=== PATIENT | male | born 1935 | race Caucasian/White ===

== ENCOUNTER → 2018-06-17 | Outpatient (CLI) | payer MEDICARE | END | disposition home or self-care (01) | LOC: SHCH 07:50 | PROVIDERS: ATTEND Internal Medicine Cardiovascular Disease | DX: I35.8 Other nonrheumatic aortic valve disorders (principal); I35.0 Nonrheumatic aortic (valve) stenosis | CPT/HCPCS: 93306 ==

== ENCOUNTER 2018-09-02 06:24 | Day surgery (SDC) | payer MEDICARE ==
[2018-08-31 09:59] LABS: BASOPHILS % (AUTO) 0.8 % (0.0-5.0); EOSINOPHILS % (AUTO) 2.4 % (0.0-8.0); HEMATOCRIT 37.7 % (42-54); LYMPHOCYTES % (AUTO) 38.9 % (21.0-51.0); MEAN CORPUSCULAR HEMOGLOBIN 30.2 pg (27.0-33.0); MEAN CORPUSCULAR HGB CONC 33.4 g/dL (32.0-36.0); MEAN CORPUSCULAR VOLUME 90.3 fL (79-99); MONOCYTES % (AUTO) 8.4 % (3.0-13.0); NEUTROPHILS % (AUTO) 49.5 % (40.0-77.0); PLATELET COUNT (AUTO) 247 K/uL (130-400); RED BLOOD CELL COUNT(AUTO) 4.18 MIL/uL (4.50-6.20); RED CELL DISTRIBUTION WIDTH 13.4 % (11.0-15.5); WHITE BLOOD COUNT (AUTO) 6.5 K/uL (4.8-10.8)
[2018-08-31 10:10] LABS: CREATININE 1.3 mg/dL (0.5-1.5); POTASSIUM 4.1 mmol/L (3.5-5.1)
[2018-08-31 10:11] VITALS: BP 155/70
[2018-08-31 10:15] LABS: INR 0.99 (0.85-1.15); PARTIAL THROMBOPLASTIN TIME 30.8 SEC (26.3-35.5); PROTHROMBIN TIME 10.4 SEC (9.6-11.6)
[2018-09-02] VITALS (9 sets, daily range): BP systolic 94–134; BP diastolic 50–69
[~2018-09-02] VITALS: Ht 185.4 cm; Wt 85.6 kg
[~2018-09-02 06:24] MED LIST: ALBU8.5H8 IH; APIX5TAB PO; DILT180C51 PO; FISH1CAP50 PO; METO25TA6 PO; UBID30CA8 PO
[2018-09-02] MEDS ORDERED: SODIUM CHLORIDE 0.9% 1000ML 1,000 ML IV SCH (08:00)
[2018-09-02] MEDS ORDERED: LIDOCAINE HCL 2% 20ML ONE (08:16)
[2018-09-02] MEDS ORDERED: MEPERIDINE-PF 25 MG/ML SYG ONE ×3 (08:26→09:30)
[2018-09-02] MEDS ORDERED: MIDAZOLAM HCL 1 MG/ML 2ML VIAL ONE ×2 (08:26→08:45)
[2018-09-02] MEDS ORDERED: HEPARIN SODIUM 1000UNIT/ML 10ML VIAL ONE (08:33)
[2018-09-02] MEDS ORDERED: METO25TA6 PO (10:52)
--- NOTE | 2018-09-02 13:45 | NUR ---
PT DISCHARGED HOME, TOLERATING FLUIDS/FOOD WELL, AMBULATING WELL, VOIDED PRIOR TO DISCHARGE. PT DENIES ANY SEVERE PAIN, NAUSEA OR DIZZINESS. PT INSTRUCTED IN DR. GUIDO'S INSTRUCTIONS TO RESUME ELIQUIS TONIGHT AND TO TAKE 1/2 TABLET OF METOPROLOL TWICE RUPINDER (INSTEAD OF WHOLE TABLET) STARTING THIS EVENING AND TO STOP IT ON THURSDAY IF HE FEELS WELL. PT INSTRUCTED IN ROUTINE AND EMERGENCY CARE OF GROIN SITE. PT AND SPOUSE REPORT NO FURTHER QUESTIONS AT THIS TIME.
[2018-09-03] MEDS ORDERED: METH4TAB3 PO (16:51)
[2018-09-03] MEDS ORDERED: AZIT250T PO (16:51)
== END 2018-09-02 13:45 | disposition home or self-care (01) ==
LOC: DAH 06:24
PROVIDERS: ATTEND Internal Medicine Cardiovascular Disease
DX: I48.3 Typical atrial flutter (principal); Z79.01 Long term (current) use of anticoagulants; Z79.899 Other long term (current) drug therapy; I10 Essential (primary) hypertension; J44.9 Chronic obstructive pulmonary disease, unspecified; N40.0 Benign prostatic hyperplasia without lower urinary tract symptoms; K29.70 Gastritis, unspecified, without bleeding; Z88.8 Allergy status to other drugs, medicaments and biological substances
CPT/HCPCS: 36415; 80048; 85025; 85610; 85730; 93613; 93621; 93653; A4606; A4649; C1730 ×2; C1732; C1894 ×2; J1644 ×2; J2175 ×3; J2250 ×2; J3490; J7030; 99156; 99157

== ENCOUNTER 2018-09-03 05:13 | Observation (INO) | payer MEDICARE ==
[~2018-09-03] VITALS: Ht 185.4 cm; Wt 84.4 kg
[2018-09-03] MEDS ORDERED: ACETAMINOPHEN EXTRA STRENGTH 500 MG TABLET ONE (05:32)
[2018-09-03] MEDS ORDERED: IPRATROPIUM/ALBUTEROL SULFATE 3 ML SOLUTION IH ONE (05:43)
[2018-09-03 05:47] LABS: BASOPHILS % (AUTO) 0.7 % (0.0-5.0); EOSINOPHILS % (AUTO) 2.5 % (0.0-8.0); HEMATOCRIT 35.9 % (42-54); LYMPHOCYTES % (AUTO) 15.5 % (21.0-51.0); MEAN CORPUSCULAR HEMOGLOBIN 30.1 pg (27.0-33.0); MEAN CORPUSCULAR HGB CONC 33.5 g/dL (32.0-36.0); MEAN CORPUSCULAR VOLUME 89.8 fL (79-99); MONOCYTES % (AUTO) 11.7 % (3.0-13.0); NEUTROPHILS % (AUTO) 69.6 % (40.0-77.0); PLATELET COUNT (AUTO) 248 K/uL (130-400); RED CELL DISTRIBUTION WIDTH 13.5 % (11.0-15.5); WHITE BLOOD COUNT (AUTO) 10.5 K/uL (4.8-10.8)
[2018-09-03 05:51] LABS: CREATININE 1.3 mg/dL (0.5-1.5); POTASSIUM 4.2 mmol/L (3.5-5.1)
[2018-09-03 05:54] LABS: INR 1.01 (0.85-1.15); PARTIAL THROMBOPLASTIN TIME 33.4 SEC (26.3-35.5); PROTHROMBIN TIME 10.6 SEC (9.6-11.6)
[2018-09-03 05:55] LABS: ALBUMIN 3.3 g/dL (3.5-5.0); BILIRUBIN,TOTAL 1.1 mg/dL (0.2-1.0); TOTAL PROTEIN, SERUM 6.7 g/dL (6.0-8.3)
[2018-09-03 05:57] LABS: APPEARANCE,URINE Clear (CLEAR); BILIRUBIN,URINE Negative (NEGATIVE); COLOR,URINE Yellow (YELLOW); GLUCOSE, URINE (UA) Negative (NEGATIVE); KETONES,URINE Negative (NEGATIVE); LEUKOCYTE ESTERASE ,URINE Negative (NEGATIVE); NITRATE,URINE Negative (NEGATIVE); OCCULT BLOOD,URINE Negative (NEGATIVE); PH,URINE 5.5 (5.0-8.0); PROTEIN,URINE Negative (NEGATIVE)
[2018-09-03 06:09] LABS: B-TYPE NATRIURETIC PEPTIDE 46 pg/mL (0-100)
[2018-09-03] MEDS: METHYLPREDNISOLONE SOD SUCC 125MG/2ML VIAL IV SCH ×2 (06:30→14:39)
[2018-09-03] MEDS ORDERED: LACTULOSE 20 GM/30 ML UDCUP PO PRN (06:30)
[2018-09-03] MEDS ORDERED: LACTATED RINGERS 1000ML 1,000 ML IV SCH (06:30)
[2018-09-03] MEDS ORDERED: ACETAMINOPHEN 325 MG TAB PO PRN (06:30)
[2018-09-03] MEDS ORDERED: AZITHROMYCIN 500MG+NS 250ML 250 ML IV SCH (06:30)
[2018-09-03] MEDS ORDERED: MORPHINE SULFATE 2 MG/ML 1ML SYG IV PRN (06:30)
[2018-09-03] MEDS ORDERED: ONDANSETRON HCL 4 MG/2 ML VIAL IV PRN (06:30)
[2018-09-03] MEDS ORDERED: ASPIRIN 325 MG TABLET ONE (06:44)
[2018-09-03] MEDS ORDERED: LACTATED RINGERS 1000ML 1,000 ML IV ONE (06:44)
[2018-09-03] MEDS ORDERED: METHYLPREDNISOLONE SOD SUCC 125MG/2ML VIAL ONE (06:45)
[2018-09-03] MEDS ORDERED: AZITHROMYCIN 500MG+NS 250ML 250 ML IV ONE (06:45)
[2018-09-03] MEDS ORDERED: ALBUTEROL SULFATE 0.083% 2.5 MG/3 ML INH IH ONE (07:07)
[2018-09-03] MEDS ORDERED: PANTOPRAZOLE SODIUM 40 MG TABLET.DR PO SCH (07:30)
[2018-09-03] MEDS ORDERED: ENOXAPARIN SODIUM 40 MG/0.4 ML SYRINGE SQ ONE (08:00)
[2018-09-03] MEDS ORDERED: PANTOPRAZOLE SODIUM 40 MG TABLET.DR PO ONE (08:00)
[2018-09-03] MEDS ORDERED: ENOXAPARIN SODIUM 40 MG/0.4 ML SYRINGE SQ SCH (09:00)
[2018-09-03] MEDS ORDERED: METOPROLOL TARTRATE 25 MG TAB PO SCH (09:00)
[2018-09-03] MEDS ORDERED: UBIDECARENONE 30 MG PO SCH (09:00)
[2018-09-03] MEDS ORDERED: DILTIAZEM HCL 180 MG CAP.SR.24H PO SCH (09:00)
[2018-09-03] MEDS ORDERED: DILTIAZEM HCL 60 MG TABLET ONE (11:35)
[2018-09-03] MEDS ORDERED: DILTIAZEM HCL 120 MG CAP.SR.24H PO ONE (11:35)
[2018-09-03] MEDS ORDERED: METOPROLOL TARTRATE 25 MG TAB ONE (11:36)
[2018-09-03 11:37] LABS: TROPONIN I 0.48 ng/mL (0.00-0.06)
[2018-09-03] MEDS ORDERED: APIXABAN 2.5 MG TABLET PO ONE (11:38)
[2018-09-03] MEDS: IPRATROPIUM/ALBUTEROL SULFATE 3 ML SOLUTION IH SCH ×2 (12:00→13:31)
[2018-09-03 12:15] VITALS: BP 120/71
[2018-09-03 16:00] VITALS: BP 144/74
[2018-09-03] MEDS ORDERED: METH4TAB3 PO (16:51)
[2018-09-03] MEDS ORDERED: AZIT250T PO (16:51)
--- NOTE | 2018-09-03 18:16 | NUR ---
PATIENT DISCHARGE PATIENT DISCHARGED, IV DISCONTINUED, BLEEDING CONTROLLED, CATHLON INTACT, PATIENT TOLERATED WITHOUT INCIDENT.
[2018-09-03] MEDS ORDERED: APIXABAN 5 MG TABLET PO SCH (21:00)
[2018-09-04] MEDS ORDERED: FISH OIL 1000 MG/CAP PO SCH (09:00)
== END 2018-09-03 18:45 | disposition home or self-care (01) ==
LOC: EDH 05:13 → EDHIP 06:30 → 3AH 12:06
PROVIDERS: ADMIT Internal Medicine; ATTEND Internal Medicine
DX: J44.1 Chronic obstructive pulmonary disease with (acute) exacerbation (principal); J44.0 Chronic obstructive pulmonary disease with (acute) lower respiratory infection; J20.9 Acute bronchitis, unspecified; I50.32 Chronic diastolic (congestive) heart failure; I48.92 Unspecified atrial flutter; Z79.01 Long term (current) use of anticoagulants; Z87.891 Personal history of nicotine dependence; Z79.899 Other long term (current) drug therapy
CPT/HCPCS: 36415; 71045; 80053; 81003; 82550 ×2; 83605; 83874; 83880; 84484 ×2; 85025; 85610; 85730; 87040 ×2; 87088; 87486; 87581; 87633; 87798; 87804 ×2; 93005; 94640 ×3; 94664; 96374; 99291; G0378 ×12; J0456; J1650; J2930 ×2; J7120

== ENCOUNTER 2019-08-09 05:32 | Day surgery (SDC) | payer MEDICARE ==
[~2019-08-09] VITALS: Ht 190.5 cm; Wt 88.9 kg
[~2019-08-09 05:32] MED LIST changes: -DILT180C51 PO; -FISH1CAP50 PO; +L.AC1CAP6 PO; +LOSA25TA41 PO; +METO-391 PO; -METO25TA6 PO; +MULT1CAP32 PO; +OMEP40CA13 PO; +TAMS-1 PO; -UBID30CA8 PO
[2019-08-09] MEDS ORDERED: SODIUM CHLORIDE 0.9% 1000ML 1,000 ML IV ONE (06:19)
[2019-08-09 06:39] VITALS: BP 154/72
[2019-08-09] MEDS ORDERED: LIDOCAINE HCL 1% 20 ML VIAL ONE (06:58)
[2019-08-09 07:11] VITALS: BP 94/34
[2019-08-09 07:35] VITALS: BP 129/56
== END 2019-08-09 07:35 | disposition home or self-care (01) ==
LOC: ENDO 05:32 → DAH 05:32 → ENDO 07:35
PROVIDERS: ATTEND Internal Medicine Gastroenterology
DX: R12 Heartburn (principal); K22.8 Other specified diseases of esophagus; K31.89 Other diseases of stomach and duodenum; K44.9 Diaphragmatic hernia without obstruction or gangrene; I45.10 Unspecified right bundle-branch block; J44.9 Chronic obstructive pulmonary disease, unspecified; K21.9 Gastro-esophageal reflux disease without esophagitis; I10 Essential (primary) hypertension; Z79.899 Other long term (current) drug therapy
CPT/HCPCS: 43239; 93005; A4215; A4221; A4222; A4223; A4606; A4620; A4663; J7030

== ENCOUNTER 2021-04-03 16:53 | Inpatient (IN) | payer MEDICARE ==
[~2021-04-03] VITALS: Ht 180.3 cm; Wt 77.1 kg
[~2021-04-03 16:53] MED LIST changes: -APIX5TAB PO; -L.AC1CAP6 PO; -METO-391 PO; -OMEP40CA13 PO; +OMEP40CA21 PO
[2021-04-03 17:29] LABS: BASOPHILS % (AUTO) 0.6 % (0.0-5.0); EOSINOPHILS % (AUTO) 3.4 % (0.0-8.0); HEMATOCRIT 36.2 % (42-54); LYMPHOCYTES % (AUTO) 13.6 % (21.0-51.0); MEAN CORPUSCULAR HEMOGLOBIN 28.7 pg (27.0-33.0); MEAN CORPUSCULAR HGB CONC 32.3 g/dL (32.0-36.0); MEAN CORPUSCULAR VOLUME 88.9 fL (79-99); MONOCYTES % (AUTO) 9.1 % (3.0-13.0); PLATELET COUNT (AUTO) 295 K/uL (130-400); RED BLOOD CELL COUNT(AUTO) 4.07 MIL/uL (4.50-6.20); RED CELL DISTRIBUTION WIDTH 12.2 % (11.0-15.5); WHITE BLOOD COUNT (AUTO) 11.9 K/uL (4.8-10.8)
[2021-04-03 17:41] LABS: CARBON DIOXIDE 27 mmol/L (21-32); CHLORIDE 101 mmol/L (101-111); CREATININE 1.5 mg/dL (0.5-1.5); GLOMERULAR FILTR. RATE CALC 47 mL/min (>60); GLUCOSE,RANDOM 96 mg/dL (70-105); POTASSIUM 4.5 mmol/L (3.5-5.1); SODIUM SERUM 140 mmol/L (136-145); UREA NITROGEN, BLOOD 15 mg/dL (7-18)
[2021-04-03 17:45] LABS: ALANINE AMINOTRANSFERASE 18 U/L (12-78); ALBUMIN 3.2 g/dL (3.5-5.0); AMYLASE 28 U/L (25-115); ASPARTATE AMINOTRANSFERASE 13 U/L (10-37); BILIRUBIN,TOTAL 0.7 mg/dL (0.2-1.0); TOTAL PROTEIN, SERUM 7.7 g/dL (6.0-8.3)
[2021-04-03 17:47] LABS: LIPASE < 50 U/L (114-286)
[2021-04-03] MEDS ORDERED: 0.9%NACL 1000ML 1,000 ML IV ONE ×2 (18:00→18:30)
[2021-04-03 18:06] LABS: APPEARANCE,URINE Clear (CLEAR); BILIRUBIN,URINE Small (NEGATIVE); COLOR,URINE Dark Yellow (YELLOW); GLUCOSE, URINE (UA) Negative (NEGATIVE); KETONES,URINE Trace mg/dL (NEGATIVE); LEUKOCYTE ESTERASE ,URINE Trace (NEGATIVE); NITRATE,URINE Negative (NEGATIVE); OCCULT BLOOD,URINE Negative (NEGATIVE); PROTEIN,URINE Trace mg/dL (NEGATIVE)
[2021-04-03] MEDS ORDERED: IOHEXOL 350 MG/ML 100ML INFUS..BTL IV ONE (18:06)
[2021-04-03 18:13] LABS: BACTERIA,URINE Few /HPF (None Seen); MUCUS,URINE Few LPF (None Seen); SQUAMOUS EPITHELIAL CELL,UR Rare /HPF (0-2)
[2021-04-03] MEDS ORDERED: ZOSYN 3.375GM +NS 50ML IV ONE (18:30)
[2021-04-03] MEDS ORDERED: 0.9%NACL 50ML 50 ML IV ONE (18:50)
[2021-04-03] MEDS ORDERED: ACETAMINOPHEN 500 MG TABLET PO ONE (19:00)
[2021-04-03] MEDS ORDERED: ONDANSETRON 4MG INJ IVP ONE (19:00)
[2021-04-03] MEDS ORDERED: MORPHINE 4 MG SYG IV ONE (19:00)
[2021-04-03] MEDS ORDERED: LIDOCAINE HCL-MPF 1% 2ML VIAL IV PRN (20:30)
[2021-04-03] MEDS ORDERED: MORPHINE 2 MG SYG IVP PRN (20:30)
[2021-04-03] MEDS ORDERED: ONDANSETRON 4MG INJ IV PRN (20:30)
[2021-04-03] MEDS ORDERED: POTASSIUM CHLORIDE 20MEQ/100ML 100 ML IV PRN (20:30)
[2021-04-03] MEDS ORDERED: ZOLP5TAB8 PO (20:34)
[2021-04-03] MEDS ORDERED: ASCO100031 PO (20:34)
[2021-04-03] MEDS ORDERED: METO-408 PO (20:34)
[2021-04-03] MEDS ORDERED: LOSA100T58 PO (20:34)
[2021-04-03] MEDS ORDERED: SENN8.6T32 PO (20:34)
[2021-04-03] MEDS ORDERED: RED600CA6 PO (20:34)
[2021-04-03] MEDS ORDERED: LACT10SO9 PO (20:34)
[2021-04-03] MEDS ORDERED: UBID100C45 PO (20:34)
[2021-04-03] MEDS ORDERED: FLUT1BLS15 IH (20:35)
[2021-04-03] MEDS ORDERED: MONT-39 PO (20:35)
[2021-04-03] MEDS ORDERED: FLUT15.87 NS (20:35)
[2021-04-03] MEDS: ZOSYN 3.375GM+NS 50ML 50 ML IV SCH (21:00)
[2021-04-03 21:17] LABS: INR 1.14 (0.85-1.15); PROTHROMBIN TIME 12.3 SEC (9.6-11.6)
[2021-04-03 21:18] LABS: PARTIAL THROMBOPLASTIN TIME 32.8 SEC (26.3-35.5)
[2021-04-03 22:00] VITALS: BP 128/62
[2021-04-03] MEDS: 0.9%NACL 1000ML 1,000 ML IV SCH (22:00)
[2021-04-04] VITALS (7 sets, daily range): BP systolic 119–154; BP diastolic 56–78
[2021-04-04 04:15] LABS: BASOPHILS % (AUTO) 0.7 % (0.0-5.0); EOSINOPHILS % (AUTO) 6.9 % (0.0-8.0); HEMATOCRIT 30.5 % (42-54); LYMPHOCYTES % (AUTO) 17.2 % (21.0-51.0); MEAN CORPUSCULAR HEMOGLOBIN 28.6 pg (27.0-33.0); MEAN CORPUSCULAR HGB CONC 31.8 g/dL (32.0-36.0); NEUTROPHILS % (AUTO) 64.5 % (40.0-77.0); PLATELET COUNT (AUTO) 244 K/uL (130-400); RED BLOOD CELL COUNT(AUTO) 3.39 MIL/uL (4.50-6.20); RED CELL DISTRIBUTION WIDTH 12.3 % (11.0-15.5); WHITE BLOOD COUNT (AUTO) 8.9 K/uL (4.8-10.8)
[2021-04-04 04:34] LABS: ALBUMIN 2.5 g/dL (3.5-5.0); BILIRUBIN,TOTAL 0.5 mg/dL (0.2-1.0); CREATININE 1.4 mg/dL (0.5-1.5); MAGNESIUM 1.8 mg/dL (1.80-2.40); PHOSPHORUS 3.7 mg/dL (2.5-4.9); POTASSIUM 4.3 mmol/L (3.5-5.1); TOTAL PROTEIN, SERUM 6.1 g/dL (6.0-8.3)
[2021-04-04] MEDS: ZOSYN 3.375GM+NS 50ML 50 ML IV SCH ×3 (04:42→23:54)
[2021-04-04] MEDS: INSULIN HUMULIN R 100 UNIT/ML 3ML SQ SCH ×4 (06:00→17:03)
[2021-04-04] MEDS: FAMOTIDINE 20MG VIAL IV SCH (09:31)
[2021-04-04] MEDS: 0.9%NACL 1000ML 1,000 ML IV SCH (09:35)
[2021-04-04] MEDS ORDERED: ZOLPIDEM TARTRATE 5 MG TAB PO PRN (12:00)
[2021-04-04] MEDS ORDERED: LACTULOSE 20 GM/30 ML UDCUP PO PRN (12:00)
[2021-04-04] MEDS ORDERED: SENNOSIDES 8.6 MG TABLET PO PRN (12:00)
[2021-04-04] MEDS ORDERED: MAGNESIUM 2GM PREMIX 50ML 50 ML IV PRN (12:30)
[2021-04-04] MEDS: METOPROLOL SUCCINATE 50 MG TAB.SR.24H PO SCH (21:53)
[2021-04-04] MEDS: MONTELUKAST SODIUM 10 MG TAB PO SCH (21:54)
[2021-04-05] MEDS: 0.9%NACL 1000ML 1,000 ML IV SCH ×3 (02:43→13:56)
[2021-04-05 04:04] VITALS: BP 138/69
[2021-04-05 04:56] LABS: MEAN CORPUSCULAR HEMOGLOBIN 28.6 pg (27.0-33.0); MEAN CORPUSCULAR HGB CONC 32.1 g/dL (32.0-36.0); MEAN CORPUSCULAR VOLUME 88.9 fL (79-99); PLATELET COUNT (AUTO) 260 K/uL (130-400); RED BLOOD CELL COUNT(AUTO) 3.15 MIL/uL (4.50-6.20); RED CELL DISTRIBUTION WIDTH 12.3 % (11.0-15.5); WHITE BLOOD COUNT (AUTO) 8.4 K/uL (4.8-10.8)
[2021-04-05 05:07] LABS: ALBUMIN 2.3 g/dL (3.5-5.0); BILIRUBIN,TOTAL 0.4 mg/dL (0.2-1.0); CREATININE 1.3 mg/dL (0.5-1.5); POTASSIUM 4.2 mmol/L (3.5-5.1)
[2021-04-05 05:18] LABS: EOSINOPHILS % (MANUAL) 4 % (1-6); LYMPHOCYTES % (MANUAL) 15 % (22-44); MAN.DIFF COMMENT-IMPRESSION MANUAL DIFFERENTIAL; MONOCYTES % (MANUAL) 12 % (2-9); SEGMENTED NEUTROPHILS % 69 % (40-70)
[2021-04-05 05:19] LABS: PLATELET MORPHOLOGY COMMENT ADEQUATE
[2021-04-05] MEDS: INSULIN HUMULIN R 100 UNIT/ML 3ML SQ SCH ×4 (06:00→18:00)
[2021-04-05] MEDS: ZOSYN 3.375GM+NS 50ML 50 ML IV SCH ×3 (06:16→22:21)
[2021-04-05 08:00] VITALS: BP 147/68
[2021-04-05] MEDS: METOPROLOL SUCCINATE 50 MG TAB.SR.24H PO SCH ×2 (08:15→22:21)
[2021-04-05] MEDS: TAMSULOSIN HCL 0.4 MG CAP.ER.24H PO SCH (08:15)
[2021-04-05] MEDS: LOSARTAN 100 MG TABLET PO SCH (08:15)
[2021-04-05] MEDS: ASCORBIC ACID 500 MG TAB PO SCH (08:16)
[2021-04-05] MEDS ORDERED: ACETAMINOPHEN 325 MG TAB PO PRN (09:30)
[2021-04-05] MEDS: **HM** TRELEGY ELLIPTA IH SCH (10:34)
[2021-04-05] MEDS: FAMOTIDINE 20MG VIAL IV SCH (10:34)
[2021-04-05] MEDS: FLUTICASONE PROPIONATE 50MCG/SPRAY 16 GM BOTTLE NS SCH (10:34)
[2021-04-05 12:00] VITALS: BP 140/63
[2021-04-05] MEDS: IPRATROPIUM 0.5 MG/2.5 ML INH IH SCH ×2 (12:33→18:47)
[2021-04-05 16:00] VITALS: BP 153/72
[2021-04-05 20:00] VITALS: BP 155/72
[2021-04-05] MEDS: MONTELUKAST SODIUM 10 MG TAB PO SCH (22:21)
[2021-04-06] VITALS (25 sets, daily range): BP systolic 113–169; BP diastolic 39–80
[2021-04-06] MEDS: IPRATROPIUM 0.5 MG/2.5 ML INH IH SCH ×4 (00:51→18:00)
[2021-04-06 04:15] LABS: HEMATOCRIT 27.4 % (42-54); MEAN CORPUSCULAR HEMOGLOBIN 28.7 pg (27.0-33.0); MEAN CORPUSCULAR HGB CONC 32.8 g/dL (32.0-36.0); MEAN CORPUSCULAR VOLUME 87.3 fL (79-99); RED BLOOD CELL COUNT(AUTO) 3.14 MIL/uL (4.50-6.20); RED CELL DISTRIBUTION WIDTH 12.2 % (11.0-15.5); WHITE BLOOD COUNT (AUTO) 6.5 K/uL (4.8-10.8)
[2021-04-06 04:23] LABS: CREATININE 1.3 mg/dL (0.5-1.5); POTASSIUM 4.2 mmol/L (3.5-5.1)
[2021-04-06] MEDS: ZOSYN 3.375GM+NS 50ML 50 ML IV SCH ×3 (04:24→21:41)
[2021-04-06] MEDS: 0.9%NACL 1000ML 1,000 ML IV SCH ×4 (04:25→12:40)
[2021-04-06] MEDS: INSULIN HUMULIN R 100 UNIT/ML 3ML SQ SCH ×4 (06:00→18:00)
[2021-04-06] MEDS: ASCORBIC ACID 500 MG TAB PO SCH (08:58)
[2021-04-06] MEDS: METOPROLOL SUCCINATE 50 MG TAB.SR.24H PO SCH ×2 (08:58→21:39)
[2021-04-06] MEDS: LOSARTAN 100 MG TABLET PO SCH (08:58)
[2021-04-06] MEDS: FAMOTIDINE 20MG VIAL IV SCH (08:58)
[2021-04-06] MEDS: FLUTICASONE PROPIONATE 50MCG/SPRAY 16 GM BOTTLE NS SCH (08:59)
[2021-04-06] MEDS: TAMSULOSIN HCL 0.4 MG CAP.ER.24H PO SCH (08:59)
[2021-04-06] MEDS: **HM** TRELEGY ELLIPTA IH SCH (09:00)
[2021-04-06] MEDS ORDERED: LIDOCAINE HCL 1% 20 ML VIAL ONE (09:52)
[2021-04-06] MEDS ORDERED: BUPIVACAINE/PF 0.25% 10ML VIAL IJ ONE (09:52)
[2021-04-06] MEDS ORDERED: ROCURONIUM 10MG/1ML SYR 10 MG/ML ML ONE ×2 (10:42→11:24)
[2021-04-06] MEDS ORDERED: PROPOFOL 10 MG/ML 20ML VIAL IV ONE (10:42)
[2021-04-06] MEDS ORDERED: KETAMINE 50MG/ML SYRINGE 50 MG/ML DISP.SYRIN IV ONE (11:03)
[2021-04-06] MEDS ORDERED: DEXAMETHASONE SOD PHOSPHATE 4 MG/ML 1ML VIAL ONE (11:22)
[2021-04-06] MEDS ORDERED: ONDANSETRON 4MG INJ ONE (11:23)
[2021-04-06] MEDS ORDERED: EPHEDRINE SULFATE 50 MG/ML AMPULE ONE (13:11)
[2021-04-06] MEDS ORDERED: NEOSTIGMINE 5MG/5ML SYR IV ONE (13:55)
[2021-04-06] MEDS ORDERED: GLYCOPYRROLATE 1 MG/5 ML SYRINGE ONE (13:55)
[2021-04-06] MEDS ORDERED: MEPERIDINE-PF 25 MG/ML SYG ONE ×2 (14:29→14:39)
[2021-04-06] MEDS ORDERED: TRAMADOL HCL 50 MG TABLET PO PRN (17:00)
[2021-04-06] MEDS ORDERED: ONDANSETRON 4MG INJ IVP PRN (17:00)
[2021-04-06] MEDS ORDERED: ACETAMINOPHEN 500 MG TABLET PO PRN (17:00)
[2021-04-06] MEDS: SIMETHICONE 80 MG TAB.CHEW PO SCH ×2 (17:49→21:38)
[2021-04-06] MEDS: HYDRALAZINE 20MG/ML VIAL IV PRN (17:57)
[2021-04-06] MEDS: HYDROMORPHONE 1 MG INJ IVP PRN (17:58)
[2021-04-06 18:56] LABS: HEMATOCRIT 30.6 % (42-54); MEAN CORPUSCULAR HEMOGLOBIN 28.4 pg (27.0-33.0); MEAN CORPUSCULAR VOLUME 91.6 fL (79-99); PLATELET COUNT (AUTO) 294 K/uL (130-400); RED BLOOD CELL COUNT(AUTO) 3.34 MIL/uL (4.50-6.20); RED CELL DISTRIBUTION WIDTH 12.2 % (11.0-15.5); WHITE BLOOD COUNT (AUTO) 8.9 K/uL (4.8-10.8)
[2021-04-06 20:10] LABS: BASOPHILS % (MANUAL) 2 % (0-2); LYMPHOCYTES % (MANUAL) 4 % (22-44); MAN.DIFF COMMENT-IMPRESSION MANUAL DIFFERENTIAL; MONOCYTES % (MANUAL) 2 % (2-9); SEGMENTED NEUTROPHILS % 92 % (40-70)
[2021-04-06 20:11] LABS: PLATELET MORPHOLOGY COMMENT ADEQUATE
[2021-04-06] MEDS: DOCUSATE SODIUM 100 MG CAP PO SCH (21:38)
[2021-04-06] MEDS: MONTELUKAST SODIUM 10 MG TAB PO SCH (21:39)
[2021-04-07] VITALS (7 sets, daily range): BP systolic 109–199; BP diastolic 56–93
[2021-04-07] MEDS: HYDRALAZINE 20MG/ML VIAL IV PRN ×2 (00:10→05:15)
[2021-04-07] MEDS: HYDROMORPHONE 1 MG INJ IVP PRN (00:11)
[2021-04-07 04:51] LABS: BASOPHILS % (AUTO) 0.3 % (0.0-5.0); HEMATOCRIT 34.6 % (42-54); LYMPHOCYTES % (AUTO) 6.4 % (21.0-51.0); MEAN CORPUSCULAR HEMOGLOBIN 28.9 pg (27.0-33.0); MEAN CORPUSCULAR HGB CONC 32.1 g/dL (32.0-36.0); MEAN CORPUSCULAR VOLUME 90.1 fL (79-99); MONOCYTES % (AUTO) 7.5 % (3.0-13.0); NEUTROPHILS % (AUTO) 85.2 % (40.0-77.0); PLATELET COUNT (AUTO) 371 K/uL (130-400); RED BLOOD CELL COUNT(AUTO) 3.84 MIL/uL (4.50-6.20); RED CELL DISTRIBUTION WIDTH 12.3 % (11.0-15.5); WHITE BLOOD COUNT (AUTO) 13.7 K/uL (4.8-10.8)
[2021-04-07] MEDS: ZOSYN 3.375GM+NS 50ML 50 ML IV SCH ×3 (05:15→21:18)
[2021-04-07] MEDS: LOSARTAN 100 MG TABLET PO SCH (05:15)
[2021-04-07] MEDS: 0.9%NACL 1000ML 1,000 ML IV SCH ×2 (05:15→14:47)
[2021-04-07 05:25] LABS: ALBUMIN 2.6 g/dL (3.5-5.0); BILIRUBIN,DIRECT 0.4 mg/dL (0.0-0.3); BILIRUBIN,TOTAL 0.7 mg/dL (0.2-1.0); CREATININE 1.1 mg/dL (0.5-1.5); POTASSIUM 4.6 mmol/L (3.5-5.1); TOTAL PROTEIN, SERUM 7.1 g/dL (6.0-8.3)
[2021-04-07] MEDS: INSULIN HUMULIN R 100 UNIT/ML 3ML SQ SCH ×4 (06:00→18:00)
[2021-04-07] MEDS: IPRATROPIUM 0.5 MG/2.5 ML INH IH SCH ×4 (06:00→18:54)
[2021-04-07] MEDS: METOPROLOL SUCCINATE 50 MG TAB.SR.24H PO SCH ×2 (09:00→21:17)
[2021-04-07] MEDS: **HM** TRELEGY ELLIPTA IH SCH (09:00)
[2021-04-07] MEDS: ASCORBIC ACID 500 MG TAB PO SCH (09:07)
[2021-04-07] MEDS: TAMSULOSIN HCL 0.4 MG CAP.ER.24H PO SCH (09:07)
[2021-04-07] MEDS: DOCUSATE SODIUM 100 MG CAP PO SCH ×2 (09:07→21:17)
[2021-04-07] MEDS: FAMOTIDINE 20MG VIAL IV SCH (09:08)
[2021-04-07] MEDS: FLUTICASONE PROPIONATE 50MCG/SPRAY 16 GM BOTTLE NS SCH (09:14)
[2021-04-07] MEDS ORDERED: MORPHINE 4 MG SYG IV PRN (10:30)
[2021-04-07] MEDS: KETOROLAC 15MG/ML VIAL (15MG/ML) IV SCH ×3 (10:55→22:40)
[2021-04-07] MEDS: SIMETHICONE 80 MG TAB.CHEW PO SCH ×3 (10:55→21:17)
[2021-04-07] MEDS: MONTELUKAST SODIUM 10 MG TAB PO SCH (21:17)
[2021-04-08] VITALS (7 sets, daily range): BP systolic 122–159; BP diastolic 61–87
[2021-04-08] MEDS: IPRATROPIUM 0.5 MG/2.5 ML INH IH SCH ×4 (00:15→23:35)
[2021-04-08] MEDS: 0.9%NACL 1000ML 1,000 ML IV SCH ×3 (02:08→21:12)
[2021-04-08 04:36] LABS: BASOPHILS % (AUTO) 0.6 % (0.0-5.0); EOSINOPHILS % (AUTO) 2.4 % (0.0-8.0); MEAN CORPUSCULAR HEMOGLOBIN 28.3 pg (27.0-33.0); MEAN CORPUSCULAR HGB CONC 32.3 g/dL (32.0-36.0); MEAN CORPUSCULAR VOLUME 87.5 fL (79-99); MONOCYTES % (AUTO) 8.3 % (3.0-13.0); NEUTROPHILS % (AUTO) 72.3 % (40.0-77.0); PLATELET COUNT (AUTO) 290 K/uL (130-400); RED BLOOD CELL COUNT(AUTO) 2.97 MIL/uL (4.50-6.20); RED CELL DISTRIBUTION WIDTH 12.4 % (11.0-15.5); WHITE BLOOD COUNT (AUTO) 8.1 K/uL (4.8-10.8)
[2021-04-08] MEDS: ZOSYN 3.375GM+NS 50ML 50 ML IV SCH ×3 (04:46→21:12)
[2021-04-08] MEDS: KETOROLAC 15MG/ML VIAL (15MG/ML) IV SCH ×4 (04:46→22:25)
[2021-04-08 04:50] LABS: BILIRUBIN,TOTAL 0.5 mg/dL (0.2-1.0); CREATININE 1.1 mg/dL (0.5-1.5); MAGNESIUM 1.8 mg/dL (1.80-2.40); POTASSIUM 3.7 mmol/L (3.5-5.1); TOTAL PROTEIN, SERUM 5.5 g/dL (6.0-8.3)
[2021-04-08] MEDS: INSULIN HUMULIN R 100 UNIT/ML 3ML SQ SCH ×4 (07:30→21:00)
[2021-04-08] MEDS: DOCUSATE SODIUM 100 MG CAP PO SCH ×2 (08:40→21:12)
[2021-04-08] MEDS: ASCORBIC ACID 500 MG TAB PO SCH (08:40)
[2021-04-08] MEDS: LOSARTAN 100 MG TABLET PO SCH (08:40)
[2021-04-08] MEDS: METOPROLOL SUCCINATE 50 MG TAB.SR.24H PO SCH ×2 (08:41→21:13)
[2021-04-08] MEDS: TAMSULOSIN HCL 0.4 MG CAP.ER.24H PO SCH (08:41)
[2021-04-08] MEDS: FAMOTIDINE 20MG VIAL IV SCH (08:52)
[2021-04-08] MEDS: SIMETHICONE 80 MG TAB.CHEW PO SCH ×4 (08:52→21:12)
[2021-04-08] MEDS: FLUTICASONE PROPIONATE 50MCG/SPRAY 16 GM BOTTLE NS SCH (08:52)
[2021-04-08] MEDS: **HM** TRELEGY ELLIPTA IH SCH (09:00)
[2021-04-08] MEDS: MONTELUKAST SODIUM 10 MG TAB PO SCH (21:12)
[2021-04-09] VITALS (7 sets, daily range): BP systolic 156–194; BP diastolic 78–97
[2021-04-09] MEDS ORDERED: DIPHENHYDRAMINE HCL 25 MG CAPSULE ONE (02:45)
[2021-04-09] MEDS: HYDRALAZINE 20MG/ML VIAL IV PRN (02:48)
[2021-04-09] MEDS ORDERED: DIPHENHYDRAMINE HCL 25 MG CAPSULE PO PRN (03:00)
[2021-04-09] MEDS: KETOROLAC 15MG/ML VIAL (15MG/ML) IV SCH (03:41)
[2021-04-09 04:38] LABS: EOSINOPHILS % (AUTO) 3.9 % (0.0-8.0); HEMATOCRIT 26.7 % (42-54); LYMPHOCYTES % (AUTO) 13.9 % (21.0-51.0); MEAN CORPUSCULAR HEMOGLOBIN 27.5 pg (27.0-33.0); MEAN CORPUSCULAR HGB CONC 31.5 g/dL (32.0-36.0); MEAN CORPUSCULAR VOLUME 87.5 fL (79-99); MONOCYTES % (AUTO) 7.4 % (3.0-13.0); NEUTROPHILS % (AUTO) 72.8 % (40.0-77.0); PLATELET COUNT (AUTO) 312 K/uL (130-400); RED BLOOD CELL COUNT(AUTO) 3.05 MIL/uL (4.50-6.20); RED CELL DISTRIBUTION WIDTH 12.5 % (11.0-15.5); WHITE BLOOD COUNT (AUTO) 5.9 K/uL (4.8-10.8)
[2021-04-09] MEDS: ZOSYN 3.375GM+NS 50ML 50 ML IV SCH ×3 (04:55→20:12)
[2021-04-09 05:35] LABS: ALBUMIN 2.2 g/dL (3.5-5.0); BILIRUBIN,TOTAL 0.4 mg/dL (0.2-1.0); CREATININE 1.1 mg/dL (0.5-1.5); MAGNESIUM 1.8 mg/dL (1.80-2.40); POTASSIUM 3.3 mmol/L (3.5-5.1); TOTAL PROTEIN, SERUM 5.8 g/dL (6.0-8.3)
[2021-04-09] MEDS: INSULIN HUMULIN R 100 UNIT/ML 3ML SQ SCH ×4 (06:19→20:07)
[2021-04-09] MEDS: 0.9%NACL 1000ML 1,000 ML IV SCH (06:20)
[2021-04-09] MEDS: IPRATROPIUM 0.5 MG/2.5 ML INH IH SCH ×3 (06:31→18:16)
[2021-04-09] MEDS: ASCORBIC ACID 500 MG TAB PO SCH (08:07)
[2021-04-09] MEDS: METOPROLOL SUCCINATE 50 MG TAB.SR.24H PO SCH ×2 (08:07→20:12)
[2021-04-09] MEDS: TAMSULOSIN HCL 0.4 MG CAP.ER.24H PO SCH (08:07)
[2021-04-09] MEDS: LOSARTAN 100 MG TABLET PO SCH (08:08)
[2021-04-09] MEDS: FAMOTIDINE 20MG VIAL IV SCH (08:08)
[2021-04-09] MEDS: DOCUSATE SODIUM 100 MG CAP PO SCH ×2 (08:24→20:11)
[2021-04-09] MEDS: **HM** TRELEGY ELLIPTA IH SCH (09:00)
[2021-04-09] MEDS: FLUTICASONE PROPIONATE 50MCG/SPRAY 16 GM BOTTLE NS SCH (09:00)
[2021-04-09] MEDS: DEXTROSE 5%-LACTATED RINGERS 1,000 ML IV SCH ×2 (12:00→22:25)
[2021-04-09] MEDS ORDERED: HYDROMORPHONE 0.5 MG SYG (0.5MG/0.5ML) IVP PRN (12:00)
[2021-04-09] MEDS: SIMETHICONE 80 MG TAB.CHEW PO SCH ×4 (12:42→20:04)
[2021-04-09] MEDS ORDERED: LACTATED RINGERS 1000ML 1,000 ML IV ONE (13:57)
[2021-04-09] MEDS: MONTELUKAST SODIUM 10 MG TAB PO SCH (20:13)
[2021-04-09] MEDS: HYDROMORPHONE 0.5 MG SYG (0.5MG/0.5ML) IVP PRN (23:55)
[2021-04-10] VITALS (7 sets, daily range): BP systolic 118–193; BP diastolic 71–82
[2021-04-10] MEDS: IPRATROPIUM 0.5 MG/2.5 ML INH IH SCH ×4 (01:11→18:30)
[2021-04-10] MEDS: ZOSYN 3.375GM+NS 50ML 50 ML IV SCH ×3 (04:13→20:44)
[2021-04-10 04:40] LABS: BASOPHILS % (AUTO) 0.7 % (0.0-5.0); LYMPHOCYTES % (AUTO) 17.7 % (21.0-51.0); MEAN CORPUSCULAR HEMOGLOBIN 28.2 pg (27.0-33.0); MEAN CORPUSCULAR HGB CONC 31.9 g/dL (32.0-36.0); MEAN CORPUSCULAR VOLUME 88.5 fL (79-99); MONOCYTES % (AUTO) 9.1 % (3.0-13.0); NEUTROPHILS % (AUTO) 64.5 % (40.0-77.0); PLATELET COUNT (AUTO) 355 K/uL (130-400); RED BLOOD CELL COUNT(AUTO) 3.05 MIL/uL (4.50-6.20); RED CELL DISTRIBUTION WIDTH 12.7 % (11.0-15.5); WHITE BLOOD COUNT (AUTO) 6.9 K/uL (4.8-10.8)
[2021-04-10 04:50] LABS: BILIRUBIN,DIRECT 0.2 mg/dL (0.0-0.3); BILIRUBIN,TOTAL 0.4 mg/dL (0.2-1.0); CREATININE 0.9 mg/dL (0.5-1.5); POTASSIUM 3.4 mmol/L (3.5-5.1); TOTAL PROTEIN, SERUM 5.6 g/dL (6.0-8.3)
[2021-04-10] MEDS: INSULIN HUMULIN R 100 UNIT/ML 3ML SQ SCH ×4 (05:36→19:27)
[2021-04-10] MEDS: SIMETHICONE 80 MG TAB.CHEW PO SCH ×4 (08:31→19:27)
[2021-04-10] MEDS: ASCORBIC ACID 500 MG TAB PO SCH (08:31)
[2021-04-10] MEDS: FAMOTIDINE 20MG VIAL IV SCH (08:31)
[2021-04-10] MEDS: DOCUSATE SODIUM 100 MG CAP PO SCH ×2 (08:32→20:45)
[2021-04-10] MEDS: METOPROLOL SUCCINATE 50 MG TAB.SR.24H PO SCH ×2 (08:32→20:45)
[2021-04-10] MEDS: TAMSULOSIN HCL 0.4 MG CAP.ER.24H PO SCH (08:32)
[2021-04-10] MEDS: LOSARTAN 100 MG TABLET PO SCH (08:32)
[2021-04-10] MEDS: DEXTROSE 5%-LACTATED RINGERS 1,000 ML IV SCH (08:48)
[2021-04-10] MEDS: **HM** TRELEGY ELLIPTA IH SCH (09:00)
[2021-04-10] MEDS: FLUTICASONE PROPIONATE 50MCG/SPRAY 16 GM BOTTLE NS SCH (09:16)
[2021-04-10] MEDS: HYDROMORPHONE 0.5 MG SYG (0.5MG/0.5ML) IVP PRN (11:32)
[2021-04-10] MEDS: MONTELUKAST SODIUM 10 MG TAB PO SCH (20:45)
[2021-04-11] VITALS (21 sets, daily range): BP systolic 132–187; BP diastolic 60–86
[2021-04-11] MEDS: DEXTROSE 5%-LACTATED RINGERS 1,000 ML IV SCH ×3 (00:03→17:38)
[2021-04-11] MEDS: IPRATROPIUM 0.5 MG/2.5 ML INH IH SCH ×2 (00:16→06:37)
[2021-04-11] MEDS: ZOSYN 3.375GM+NS 50ML 50 ML IV SCH ×3 (04:48→21:13)
[2021-04-11 05:51] LABS: HEMATOCRIT 27.3 % (42-54); MEAN CORPUSCULAR HGB CONC 32.6 g/dL (32.0-36.0); MEAN CORPUSCULAR VOLUME 85.8 fL (79-99); RED BLOOD CELL COUNT(AUTO) 3.18 MIL/uL (4.50-6.20); RED CELL DISTRIBUTION WIDTH 12.4 % (11.0-15.5); WHITE BLOOD COUNT (AUTO) 6.9 K/uL (4.8-10.8)
[2021-04-11 06:24] LABS: ALBUMIN 2.1 g/dL (3.5-5.0); BILIRUBIN,DIRECT 0.2 mg/dL (0.0-0.3); BILIRUBIN,TOTAL 0.5 mg/dL (0.2-1.0); TOTAL PROTEIN, SERUM 5.6 g/dL (6.0-8.3)
[2021-04-11] MEDS ORDERED: IOHEXOL-350 50ML VIAL IV ONE (06:41)
[2021-04-11] MEDS: INSULIN HUMULIN R 100 UNIT/ML 3ML SQ SCH ×4 (06:41→21:00)
[2021-04-11] MEDS ORDERED: MIDAZOLAM HCL 1 MG/ML 2ML VIAL ONE (07:52)
[2021-04-11] MEDS ORDERED: FENTANYL CITRATE PF 50 MCG/1 ML 2ML VIAL ONE (07:52)
[2021-04-11] MEDS ORDERED: SUCCINYLCHOLINE 200MG/10ML SYR ONE (07:53)
[2021-04-11] MEDS ORDERED: LIDOCAINE HCL 400MG/20ML VIAL ONE (07:53)
[2021-04-11] MEDS ORDERED: PROPOFOL 10 MG/ML 20ML VIAL IV ONE (07:53)
[2021-04-11] MEDS ORDERED: INDOMETHACIN 50 MG SUPP.RECT RC SCH (08:00)
[2021-04-11] MEDS: DOCUSATE SODIUM 100 MG CAP PO SCH ×3 (08:57→21:13)
[2021-04-11] MEDS: LOSARTAN 100 MG TABLET PO SCH ×2 (08:57→11:24)
[2021-04-11] MEDS: FAMOTIDINE 20MG VIAL IV SCH ×2 (08:57→11:26)
[2021-04-11] MEDS: FLUTICASONE PROPIONATE 50MCG/SPRAY 16 GM BOTTLE NS SCH (08:57)
[2021-04-11] MEDS: **HM** TRELEGY ELLIPTA IH SCH ×2 (08:57→09:00)
[2021-04-11] MEDS: TAMSULOSIN HCL 0.4 MG CAP.ER.24H PO SCH (08:57)
[2021-04-11] MEDS: METOPROLOL SUCCINATE 50 MG TAB.SR.24H PO SCH ×3 (08:58→21:12)
[2021-04-11] MEDS: SIMETHICONE 80 MG TAB.CHEW PO SCH ×5 (08:58→21:12)
[2021-04-11] MEDS: ASCORBIC ACID 500 MG TAB PO SCH (08:58)
[2021-04-11] MEDS ORDERED: IPRATROPIUM 0.5 MG/2.5 ML INH IH PRN (12:00)
[2021-04-11] MEDS: HYDRALAZINE 20MG/ML VIAL IV PRN (18:16)
[2021-04-11] MEDS: MONTELUKAST SODIUM 10 MG TAB PO SCH (21:12)
[2021-04-12] MEDS: DEXTROSE 5%-LACTATED RINGERS 1,000 ML IV SCH ×2 (00:06→20:00)
[2021-04-12] MEDS: ZOSYN 3.375GM+NS 50ML 50 ML IV SCH ×3 (04:12→21:58)
[2021-04-12 04:23] VITALS: BP 152/76
[2021-04-12 05:11] LABS: HEMATOCRIT 27.8 % (42-54); LYMPHOCYTES % (AUTO) 17.3 % (21.0-51.0); MEAN CORPUSCULAR VOLUME 87.4 fL (79-99); MONOCYTES % (AUTO) 10.7 % (3.0-13.0); NEUTROPHILS % (AUTO) 63.1 % (40.0-77.0); PLATELET COUNT (AUTO) 345 K/uL (130-400); RED BLOOD CELL COUNT(AUTO) 3.18 MIL/uL (4.50-6.20); RED CELL DISTRIBUTION WIDTH 12.6 % (11.0-15.5); WHITE BLOOD COUNT (AUTO) 6.9 K/uL (4.8-10.8)
[2021-04-12 05:28] LABS: BILIRUBIN,DIRECT 0.2 mg/dL (0.0-0.3); BILIRUBIN,TOTAL 0.4 mg/dL (0.2-1.0); POTASSIUM 3.3 mmol/L (3.5-5.1); TOTAL PROTEIN, SERUM 5.6 g/dL (6.0-8.3)
[2021-04-12] MEDS ORDERED: LIDOCAINE HCL-MPF 1% 2ML VIAL IV PRN (06:00)
[2021-04-12] MEDS ORDERED: POTASSIUM CHLORIDE 10% ELIXIR 20 MEQ/15 ML UDCUP PO PRN (06:00)
[2021-04-12] MEDS ORDERED: KCL 20 MEQ ERTAB PO PRN (06:00)
[2021-04-12] MEDS ORDERED: POTASSIUM CHLORIDE 20MEQ/100ML 100 ML IV PRN (06:00)
[2021-04-12] MEDS: INSULIN HUMULIN R 100 UNIT/ML 3ML SQ SCH ×4 (06:41→20:54)
[2021-04-12 08:00] VITALS: BP 149/65
[2021-04-12] MEDS: **HM** TRELEGY ELLIPTA IH SCH (08:46)
[2021-04-12] MEDS: LOSARTAN 100 MG TABLET PO SCH (08:54)
[2021-04-12] MEDS: ASCORBIC ACID 500 MG TAB PO SCH (08:55)
[2021-04-12] MEDS: TAMSULOSIN HCL 0.4 MG CAP.ER.24H PO SCH (08:56)
[2021-04-12] MEDS: METOPROLOL SUCCINATE 50 MG TAB.SR.24H PO SCH ×2 (08:56→21:58)
[2021-04-12] MEDS: FAMOTIDINE 20MG VIAL IV SCH (08:57)
[2021-04-12] MEDS: DOCUSATE SODIUM 100 MG CAP PO SCH ×2 (09:00→21:58)
[2021-04-12] MEDS: FLUTICASONE PROPIONATE 50MCG/SPRAY 16 GM BOTTLE NS SCH (09:00)
[2021-04-12 12:00] VITALS: BP_SYST 155; BP_SYST 156; BP_DIAS 71; BP_DIAS 75
[2021-04-12] MEDS: SIMETHICONE 80 MG TAB.CHEW PO SCH ×3 (13:00→21:00)
[2021-04-12] MEDS ORDERED: AMOX-429 PO (13:36)
[2021-04-12 16:00] VITALS: BP 155/71
[2021-04-12] MEDS ORDERED: HYDROCHLOROTHIAZIDE 25 MG TABLET PO ONE (19:30)
[2021-04-12 20:00] VITALS: BP 174/71
[2021-04-12] MEDS: MONTELUKAST SODIUM 10 MG TAB PO SCH (21:58)
[2021-04-12] MEDS: HYDRALAZINE 20MG/ML VIAL IV PRN (21:59)
[2021-04-12 22:00] VITALS: BP 166/76
[2021-04-13] VITALS: BP 164/72
[2021-04-13 04:00] VITALS: BP 149/65
[2021-04-13] MEDS: DEXTROSE 5%-LACTATED RINGERS 1,000 ML IV SCH (05:24)
[2021-04-13 05:34] LABS: BILIRUBIN,DIRECT 0.2 mg/dL (0.0-0.3); BILIRUBIN,TOTAL 0.4 mg/dL (0.2-1.0); HEMATOCRIT 28.7 % (42-54); MEAN CORPUSCULAR HEMOGLOBIN 27.8 pg (27.0-33.0); MEAN CORPUSCULAR HGB CONC 32.4 g/dL (32.0-36.0); MEAN CORPUSCULAR VOLUME 85.7 fL (79-99); POTASSIUM 3.2 mmol/L (3.5-5.1); RED BLOOD CELL COUNT(AUTO) 3.35 MIL/uL (4.50-6.20); RED CELL DISTRIBUTION WIDTH 12.9 % (11.0-15.5); TOTAL PROTEIN, SERUM 5.7 g/dL (6.0-8.3); WHITE BLOOD COUNT (AUTO) 8.1 K/uL (4.8-10.8)
[2021-04-13] MEDS: ZOSYN 3.375GM+NS 50ML 50 ML IV SCH (05:49)
[2021-04-13] MEDS: INSULIN HUMULIN R 100 UNIT/ML 3ML SQ SCH (06:33)
[2021-04-13] MEDS ORDERED: HYDR25TA PO (08:08)
[2021-04-13] MEDS ORDERED: CLON0.1T PO (08:18)
[2021-04-13] MEDS: **HM** TRELEGY ELLIPTA IH SCH (09:00)
[2021-04-13] MEDS ORDERED: HYDROCHLOROTHIAZIDE 25 MG TABLET PO SCH ×2 (09:00)
[2021-04-13] MEDS ORDERED: ENOXAPARIN SODIUM 40 MG/0.4 ML SYRINGE SQ SCH (09:00)
[2021-04-13] MEDS: SIMETHICONE 80 MG TAB.CHEW PO SCH (09:00)
[2021-04-13] MEDS: DOCUSATE SODIUM 100 MG CAP PO SCH (09:00)
[2021-04-13] MEDS: TAMSULOSIN HCL 0.4 MG CAP.ER.24H PO SCH (10:37)
[2021-04-13] MEDS: ASCORBIC ACID 500 MG TAB PO SCH (10:38)
[2021-04-13] MEDS: LOSARTAN 100 MG TABLET PO SCH (10:38)
[2021-04-13] MEDS: FAMOTIDINE 20MG VIAL IV SCH (10:38)
[2021-04-13] MEDS: METOPROLOL SUCCINATE 50 MG TAB.SR.24H PO SCH (10:39)
== END 2021-04-13 13:00 | disposition home or self-care (01) | DRG 417 ==
LOC: EDH 16:53 → EDHIP 19:33 → OBSVTOIN 19:33 → 3CH 22:53
PROVIDERS: ADMIT Internal Medicine Critical Care Medicine; ATTEND Internal Medicine Critical Care Medicine
PROC: 0FB44ZZ Excision of Gallbladder, Percutaneous Endoscopic Approach (ICD-10-PCS; principal; 2021-04-06 11:09)
PROC: 0F798DZ Dilation of Common Bile Duct with Intraluminal Device, Via Natural or Artificial Opening Endoscopic (ICD-10-PCS; 2021-04-11)
PROC: 0F7D8DZ Dilation of Pancreatic Duct with Intraluminal Device, Via Natural or Artificial Opening Endoscopic (ICD-10-PCS; 2021-04-11)
DX: K80.00 Calculus of gallbladder with acute cholecystitis without obstruction (principal); K65.9 Peritonitis, unspecified; N39.0 Urinary tract infection, site not specified; I50.32 Chronic diastolic (congestive) heart failure; J44.9 Chronic obstructive pulmonary disease, unspecified; K82.A1 Gangrene of gallbladder in cholecystitis; I11.0 Hypertensive heart disease with heart failure; R33.8 Other retention of urine; Z20.822 Contact with and (suspected) exposure to COVID-19; I48.91 Unspecified atrial fibrillation; K82.8 Other specified diseases of gallbladder; D64.9 Anemia, unspecified; K57.30 Diverticulosis of large intestine without perforation or abscess without bleeding; K83.8 Other specified diseases of biliary tract; N40.0 Benign prostatic hyperplasia without lower urinary tract symptoms; K83.9 Disease of biliary tract, unspecified; K66.0 Peritoneal adhesions (postprocedural) (postinfection); Z79.899 Other long term (current) drug therapy; Z88.5 Allergy status to narcotic agent; Z88.8 Allergy status to other drugs, medicaments and biological substances; Z95.5 Presence of coronary angioplasty implant and graft; Z87.891 Personal history of nicotine dependence
CPT/HCPCS: 36415; 43262; 43274; 71045; 74150; 74177; 74330; 76705; 80048; 80053; 80076; 81001; 82150; 82247; 82248; 82948; 83690; 83735; 84100; 84484; 85025; 85027; 85610; 85730; 86850; 86900; 86901; 87040; 87635; 93005; 94640; 94664; A4606; C1769; C1773; C2625; C9803; G0378; J0330; J0360; J1100; J1170; J1650; J1885; J2175; J2250; J2270; J2405; J2543; J2704; J2710; J3010; J3475; J3490; J7030; J7120; Q0163; Q9967

== ENCOUNTER → 2023-05-15 | Outpatient (CLI) | payer MEDICARE ==
[~2023-05-15] MED LIST changes: -ALBU8.5H8 IH; +AMOX-429 PO; +AUD IH; +BUDE0.5A3 IH; +FLUC200T PO; +LOSA100T59 PO; -LOSA25TA41 PO; -MULT1CAP32 PO; -OMEP40CA21 PO; +PANT40TA54 PO
== END | disposition home or self-care (01) ==
LOC: RAH 07:08
PROVIDERS: ATTEND Internal Medicine Gastroenterology
DX: K30 Functional dyspepsia (principal); R14.0 Abdominal distension (gaseous); R11.0 Nausea
CPT/HCPCS: 78264; A9541

== ENCOUNTER → 2024-05-10 | Outpatient (CLI) | payer MEDICARE ==
[~2024-05-10] MED LIST changes: +IOHEXOL 350 MG/ML 100ML INFUS..BTL IV ONE
--- NOTE | 2024-05-10 11:15 | HMCIMG ---
CT ABDOMEN/PELVIS W/WO CONTRAS HISTORY: Lower abdominal pain COMPARISON: None TECHNIQUE: Multiple sequential axial images of the abdomen and pelvis were obtained from the dome of the diaphragm through symphysis pubis. Patient was not given contrast through intravenous route. Oral contrast was not given. FINDINGS: Small right pleural effusion is seen. Minimal left lower lung pulmonary infiltrates are seen. Coronary arterial calcifications are seen. There is no evidence of parenchymal disease or pulmonary nodule of the visualized lower lungs. Degenerative changes of the thoracolumbar spine are present. The heart is not enlarged. Mild intrahepatic ductal dilatation is seen. Post cholecystectomy changes are seen. There is intrahepatic biliary air. Postcholecystectomy changes are seen. There is enhancing nodule at the peripheral aspect of the right kidney laterally measuring 11 mm. There is diverticulosis. The liver, spleen, adrenal glands and pancreas are unremarkable. There is no evidence of hydronephrosis bilaterally. No evidence of renal stone is seen. Fecal material is seen in the colon. There are normal size retroperitoneal and mesenteric lymph nodes. No ascites is seen. Atherosclerotic changes are present. Pelvic sidewalls are symmetric bilaterally. Bladder is well distended without wall thickening. IMPRESSION: 1. Small right pleural effusion. Minimal left lung infiltrates. Right renal nodule laterally measuring 11 mm. Diverticulosis. No ascites. CT was performed with one or more following dose reduction techniques: automated exposure control, adjustment of the mA and kv according to patient's size, or use of a iterative reconstruction technique.
== END | disposition home or self-care (01) ==
LOC: RAH 09:52
PROVIDERS: ATTEND Family Medicine
DX: K57.30 Diverticulosis of large intestine without perforation or abscess without bleeding (principal); J90 Pleural effusion, not elsewhere classified; I70.90 Unspecified atherosclerosis; R10.30 Lower abdominal pain, unspecified; Z90.49 Acquired absence of other specified parts of digestive tract
CPT/HCPCS: 74178; Q9967

== ENCOUNTER → 2024-11-15 | Outpatient (CLI) | payer MEDICARE ==
[~2024-11-15] MED LIST changes: -IOHEXOL 350 MG/ML 100ML INFUS..BTL IV ONE; -TAMS-1 PO; +TAMS-55 PO
--- NOTE | 2024-11-15 13:15 | NUR ---
MBSS COMPLETED (OUTPATIENT). Deep non-transient penetration during the swallow with thin liquids via large sip with no cough response. No aspirations. Recommend regular solids, thin liquids and pills whole with liquids as tolerated. Compensatory strategies: 1. sit upright during oral intake 2. small and single bites/sips 3. extra dry swallows DIAGNOSTIC FINDINGS: Pt presented with mild pharyngeal dysphagia likely due to advanced age characterized by decreased tongue base retraction; delayed pharyngeal response trigger; decreased hyo-laryngeal elevation/excursion evidenced by tongue pumping; premature spillage to valleculae and occasionally to pyriform sinuses; residue on base of tongue and valleculae cleared with extra dry swallows; resulting in deep non-transient penetrations during the swallow with large and continuous sips of thin liquids. CP bar noted at C5-C6 level and instrumentation at C3-C4 level. PHP CONSULTANT reviewed results and recommendations with patient. PHP CONSULTANT educated patient on risks and consequences of aspiration. Speech therapy not warranted at this time. Mild pharyngeal dysphagia best managed with modifications and compensatory swallow strategies. All questions answered. Addendum: 11/15/[address]ORRIE SORIANO Amended: Links added.
--- NOTE | 2024-11-15 14:27 | HMCIMG ---
MODIFIED BARIUM SWALLOW W CINE INDICATION: DYSPHAGIA; Gastro-esophageal reflux disease with esophagitis, without bleed FINDINGS: Fluoroscopic assistance was provided to the speech pathologist while performing examination. For findings and dietary recommendations, refer to speech pathologist's report. FLUORO TIME: 2.6 minutes IMPRESSION: Modified barium swallow as described.
== END | disposition home or self-care (01) ==
LOC: RAH 12:22
PROVIDERS: ATTEND Internal Medicine
DX: K21.00 Gastro-esophageal reflux disease with esophagitis, without bleeding (principal); R13.10 Dysphagia, unspecified
CPT/HCPCS: 74230; 92611